=== PATIENT | male | born 1960 | race Caucasian/White ===

== ENCOUNTER 2019-03-31 20:14 | Emergency (ER) | payer MEDICAID ==
[~2019-03-31] VITALS: Ht 170.2 cm; Wt 101.2 kg
--- NOTE | 2019-04-01 17:46 | EKG ---
[facility] [address] [place] [address] Signed Normal sinus rhythm Rightward axis Borderline ECG No previous ECGs available Confirmed by CALOS AVENDAÑO MD ([id number] on 04/01/2019 5:46:27 PM Electronically Signed By: CALOS AVENDAÑO MD 04/01/19 1746 PATIENT NAME: YOBANI TREJO Electrocardiogram DATE OF : 62 PHYSICIAN: CALOS AVENDAÑO MD REPORT #: [id number] REPORT IS CONFIDENTIAL AND NOT TO BE RELEASED WITHOUT AUTHORIZATION
== END 2019-04-01 01:42 | disposition home or self-care (01) ==
LOC: ED 20:14
DX: R07.89 Other chest pain (principal); Z87.891 Personal history of nicotine dependence; R60.0 Localized edema
CPT/HCPCS: 71045; 80053; 83735; 84484; 85025; 93005; 93010; 99285-25